=== PATIENT | female | born 1950 | race Caucasian/White ===

== ENCOUNTER 2019-07-22 08:43 | Outpatient (CLI) | payer MEDICARE, SELFPAY ==
--- NOTE | ~2019-07-22 | DEXA_ITS ---
Bone Density Report Name: Susan Moise Age: 69 Sex: Female Ethnicity: White Date of : 1950 Indication: monitoring treatment; prior fracture; cancer; asthma or emphysema; Referring Provider: DARREL, DEJAH Turcios Study: Bone densitometry was performed. Exam Date: July 22, 2019 Accession number: [id number] Bone Density: Region BMD T-score Z-score Classification AP Spine (L1, L2) 0.987 0.1 1.9 Normal Femoral Neck (Left) 0.769 -0.7 0.9 Normal Total Hip (Left) 1.007 0.5 1.9 Normal Total Hip Bilateral Avg 1.006 0.5 1.9 Normal Femoral Neck (Right) 0.768 -0.7 0.9 Normal Total Hip (Right) 1.004 0.5 1.9 Normal World Health Organization criteria for BMD impression classify patients as: Normal (T-score at or above -1.0), Osteopenia (T-score between -1.0 and -2.5), or Osteoporosis (T-score at or below -2.5). 10-year Fracture Risk: FRAX not reported because: All T-scores for Spine Total, Hip Total, Femoral Neck at or above -1.0 Treated for osteoporosis Previous Exams: Region Exam Age BMD T-score BMD Change BMD Change Date g/cm2 vs Baseline vs Previous AP Spine(L1, L2) 07/22/2019 69 0.987 0.1 -0.121(-10.9%) -0.121(-10.9%) 07/19/2017 67 1.108 1.2 Total Hip(Left) 07/22/2019 69 1.007 0.5 0.005(0.5%) 0.005(0.5%) 07/19/2017 67 1.002 0.5 Total Hip(Right) 07/22/2019 69 1.004 0.5 -0.011(-1.1%) -0.011(-1.1%) 07/19/2017 67 1.015 0.6 *Denotes significance at 95% confidence level, LSC for AP Spine = 0.022 g/cm2, LSC for Total Hip = 0.027 g/cm2 Clinical Information Provided by Patient: Has had a low trauma fracture Is being treated for osteoporosis Has used the following medications: Vitamin D, Calcium Has the following medical conditions: Asthma or Emphysema, Cancer Patient maximum height was 65.0 Menopause Age: 52 No regular weight bearing exercise Does not regularly consume dairy products Drinks caffeinated beverages Onset of menses at age 14 Number of children 1 Impression: The patient has normal bone mass. The patient has risk factors, including: previous fracture. The BMD for the AP Spine(L1, L2) decreased, changing by -10.9% since the last DXA exam. Discussion: SIGNIFICANT BONE LOSS OBSERVED. Adherence to therapy (including calcium and vitamin D intake) should be assessed. If compliance is not a factor, review management and exclusion of secondary causes of bone loss. It is important to ask patients whether the
== END 2019-07-22 08:44 | disposition home or self-care (01) ==
LOC: ANHIMG 08:48
PROVIDERS: PCP Internal Medicine; Visit Provider Internal Medicine
DX: C50.211 Malignant neoplasm of upper-inner quadrant of right female breast (principal); Z17.0 Estrogen receptor positive status [ER+]; J43.9 Emphysema, unspecified; Z78.0 Asymptomatic menopausal state
CPT/HCPCS: 77080

== ENCOUNTER 2020-08-15 10:53 | Emergency (ER) | payer MEDICARE, SELFPAY ==
--- NOTE | ~2020-08-15 | XR_ITS ---
XR hand LT min 3V DATE: 08/15/2020 11:25 INDICATION: Fall yesterday. Left ulnar carpal and hand pain TECHNIQUE: 3 views COMPARISON: None FINDINGS: There is diffuse osteopenia. There is osteoarthritis at the first carpometacarpal, fifth metacarpophalangeal and multiple interpha langeal joints. No recent fracture, dislocation, periosteal reaction or bone destruction, chondrocalcinosis or erosiv e change is evident. IMPRESSION: Polyarticular osteoarthritis No fracture or dislocation Reviewed, dictated and finalized at location A. K LOADER
--- NOTE | 2020-08-15 11:07 | ED.UPPEXIN ---
HPI - Extremity Injury (Upper) General Chief Complaint: Extremity Injury, Upper Stated Complaint: fell left hand pain Time Seen by Provider: 08/15/20 11:07 Source: patient and RN notes reviewed Mode of arrival: ambulatory Limitations: no limitations History of Present Illness HPI narrative: 70-year-old female presents to [facility] with left hand pain after tripping and falling yesterday. Patient reports that she tripped and fell landing on her left hand. Denies Hitting head or LOC. Deneis neck or back pain. Pain is to the ulcer aspect of hand. Bruising noted to the top of the hand and to the distal ulner area. Related Data Home Medications Medication Instructions Recorded Confirmed blood sugar diagnostic [Contour 08/15/20 08/15/20 Next Test Strips] bupropion HCl PO 08/15/20 fluticasone propionate [Flovent INHALATION 08/15/20 HFA] metformin mg PO 08/15/20 nifedipine PO 08/15/20 ramipril mg 08/15/20 rosuvastatin mg 08/15/20 venlafaxine mg PO 08/15/20 Allergies Allergy/AdvReac Type Severity Reaction Status Date / Time No Known Allergies Allergy Unverified 07/03/18 16:50 Review of Systems Review of Systems: Narrative: CONSTITUTIONAL: Denies fever, chills, or sweats. EYES: Denies visual changes. CARDIOVASCULAR: Denies chest pain, palpitations, or edema. RESPIRATORY: Denies cough or dyspnea. SKIN: Denies rash or itching. Bruising to the dorsal aspect of left hand MUSCULOSKELETAL: Denies back pain. Left wrist pain and hand pain NEUROLOGIC: Denies headache, numbness, or weakness. PSYCHIATRIC: Denies anxiety or depression. All other systems reviewed are negative, except as documented in HPI. [facility] Past Medical History Medical History (Updated 08/15/20 @ 12:57 by Carrie Christianson) Depression Diabetes 1.5, managed as type 2 History of high cholesterol Hypertension Comments At the time of my signature, I reviewed and agree with the nursing past medical, surgical, social, and family history. There is no relevant family history pertinent to the patient complaint. Exam Narrative: Exam Narrative: GENERAL: This is a well-nourished, well-developed patient, in no apparent distress. HEAD: normocephalic, atraumatic. EYES: PERRL. Sclera clear/white. Vision is grossly intact. EARS: External ears normal. NECK: Neck supple, non-tender without lymphadenopathy, masses or thyromegaly. CARDIOVASCULAR: Regular rate and rhythm without murmurs, gallops, or rubs. RESPIRATORY: Clear to auscultation. Breath sounds equal bilaterally. No wheezes, rales, or rhonchi. SKIN: warm, intact with no suspicious lesions or rash, good texture and turgor. NEURO: awake, alert, and oriented to person, place and time. There were no obvious focal neurologic abnormalities. EXTREMITIES: No clubbing, cyanosis, or edema. No joint tenderness, effusion, or edema noted. No calf tenderness. Negative Homans sign bilaterally. BACK: Nontender without deformity or crepitance. No flank tenderness. Extrem: Hand/finger images: 1. bruising and tenderness with mild swelling 2. Tenderness with bruising. Course Vital Signs Vital signs: Vital Signs Temperature 98.2 F 08/15/20 11:11 Pulse Rate 95 08/15/20 11:11 Respiratory Rate 16 08/15/20 11:11 Blood Pressure 151/74 H 08/15/20 11:11 Pulse Oximetry 99 08/15/20 11:11 Temperature 98.2 F 08/15/20 11:13 Pulse Rate 95 08/15/20 11:13 Respiratory Rate 16 08/15/20 11:13 Blood Pressure 151/74 H 08/15/20 11:13 Pulse Oximetry 99 08/15/20 11:13 reviewed. Patient diagnosed with hypertension. Encourage patient to follow-up with primary care provider for evaluation of the elevated blood pressure today MDM - Extremity Injury (Upper) MDM Narrative Medical decision making narrative: Discharge instructions reviewed with patient, as well as provided in writing per nursing staff. The instructions also include specific and strict return/GO TO THE ER as well as f/u information. A
[2020-08-15 11:11] VITALS: BP 151/74; PULSE 95; RESP 16; TEMP 36.8; O2SAT 99
[2020-08-15 11:13] VITALS: BP 151/74; PULSE 95; RESP 16; TEMP 36.8; O2SAT 99
== END 2020-08-15 12:00 | disposition home or self-care (01) ==
PROVIDERS: Emergency Provider Nurse Practitioner
DX: S60.222A Contusion of left hand, initial encounter (principal); W01.0XXA Fall on same level from slipping, tripping and stumbling without subsequent striking against object, initial encounter; S63.502A Unspecified sprain of left wrist, initial encounter; F32.9 Major depressive disorder, single episode, unspecified; E13.8 Other specified diabetes mellitus with unspecified complications; E78.00 Pure hypercholesterolemia, unspecified; I10 Essential (primary) hypertension
CPT/HCPCS: 73130; 99213; G0463

== ENCOUNTER 2022-05-17 15:54 | Emergency (ER) | payer MEDICARE, SELFPAY ==
--- NOTE | ~2022-05-17 | CT_ITS ---
EXAMINATION: CT cervical spine wo con DATE: 05/17/2022 17:02 INDICATION: Neck pain after fall TECHNIQUE: Computed tomography (CT) of the cervical spine was performed without intravenous contrast. The dose-length product was 498 mGy-cm. Automated exposure control and iterative reconstruction tech nique were employed. COMPARISON: None FINDINGS: There is straightening of cervical lordosis. There is moderate degenerative disc disease at C6-7. Odontoid process is normal. Craniovertebral junction is normal. There is an old avulsion fract ure spinous process T1. There is advanced multilevel uncinate and facet hypertrophy. There is emphyse ma. No paraspinal soft tissue abnormality. IMPRESSION: 1. No acute abnormality of the cervical spine. 2: Severe cervical spondylosis. Reviewed, dictated and finalized at location A. S AND SERVICE AGENT
--- NOTE | ~2022-05-17 | CT_ITS ---
EXAMINATION: CT brain wo con DATE: 05/17/2022 17:00 INDICATION: Status post fall. TECHNIQUE: Computed tomography (CT) of the head was performed without intravenous contrast. The dose- length product was 605.33 mGy-cm. Automated exposure control and iterative reconstruction technique w ere employed. COMPARISON: None FINDINGS: Mild generalized atrophy. There are scattered mild periventricular and subcortical white ma tter changes, most likely related to small vessel ischemic disease (microangiopathy). No ventriculome mitch or midline shift. No acute intracranial hemorrhage, infarction, mass or mass effect. Prominent d ural calcifications along the anterior aspect of the interhemispheric fissure. There is soft tissue l aceration anteriorly above the nose and then the forehead there are nasal fractures.. IMPRESSION: 1. No acute intracranial abnormality. 2: Bilateral nasal fractures. Reviewed, dictated and finalized at location A. D CONTRACTOR
[2022-05-17 16:10] VITALS: BP 142/90; PULSE 107; RESP 18; TEMP 36.3; O2SAT 100
--- NOTE | 2022-05-17 19:08 | ED.FALL ---
HPI - Fall General Chief Complaint: Fall Stated Complaint: fall Time Seen by Provider: 05/17/22 18:29 History of Present Illness HPI Narrative: 72-year-old female presents to the emergency room for evaluation of a head injury status post mechanical ground-level fall. Patient states that she lost her footing and fell forward hitting her face on the concrete. Complains of nasal pain a laceration to her forehead. Denies any LOC or altered mental status. No visual or hearing changes. Was able to ambulate following the injury. Denies confusion or headache. Related Data Home Medications Medication Instructions Recorded Confirmed blood sugar diagnostic (Contour 08/15/20 08/15/20 Next Test Strips) bupropion HCl 100 mg tablet PO 08/15/20 fluticasone propionate 110 inhalation 08/15/20 mcg/actuation HFA aerosol inhaler (Flovent HFA) metformin 500 mg tablet,extended mg PO 08/15/20 release 24 hr nifedipine 60 mg tablet,extended PO 08/15/20 release 24 hr ramipril 10 mg capsule mg 08/15/20 rosuvastatin 10 mg tablet mg 08/15/20 venlafaxine 150 mg mg PO 08/15/20 capsule,extended release 24 hr Allergies Allergy/AdvReac Type Severity Reaction Status Date / Time No Known Allergies Allergy Unverified 07/03/18 16:50 Review of Systems Review of Systems: CONSTITUTIONAL: Denies fever, chills, or sweats. EYES: Denies visual changes, redness, or discharge. ENT: Nasal pain CARDIOVASCULAR: Denies chest pain, palpitations, or edema. RESPIRATORY: Denies cough or dyspnea. GASTROINTESTINAL: Denies abdominal pain, nausea, vomiting, or diarrhea. GENITOURINARY: Denies dysuria or hematuria. SKIN: Forehead laceration MUSCULOSKELETAL: Denies back pain, joint pain, or myalgia. NEUROLOGIC: Denies headache, numbness, dizziness, or weakness. PSYCHIATRIC: Denies anxiety or depression. [facility] Past Medical History Medical History Depression Diabetes 1.5, managed as type 2 History of high cholesterol Hypertension Exam Narrative: GENERAL: Well-appearing, well-nourished, no physical limitations, and in no acute distress. HEAD: Normocephalic, +TTP, +STS, ecchymosis to bridge of nose EYES: Conjunctivae normal, PERRLA and EOMI. ENT: External nose normal, Nares clear, epistaxis present. CHEST: Clear to auscultation. No respiratory distress. No wheezes rales or rhonchi. HEART: Regular rate and rhythm. No murmur heard. Normal peripheral pulses. EXTREMITIES: Normal range of motion. No edema. No clubbing or cyanosis SKIN: forehead: Stellate shaped laceration superior to the bridge of the nose. NEURO: No focal deficits. Alert and oriented x3. MAEW. CN's II-XI intact bilaterally, normal gait PSYCH: Cooperative. Normal mood and affect. Course Vital Signs Vital signs: Vital Signs Temperature 36.3 C L 05/17/22 16:10 Pulse Rate 107 H 05/17/22 16:10 Respiratory Rate 18 05/17/22 16:10 Blood Pressure 142/90 H 05/17/22 16:10 Pulse Oximetry 100 05/17/22 16:10 Temperature 36.3 C L 05/17/22 16:10 Pulse Rate 107 H 05/17/22 16:10 Respiratory Rate 18 05/17/22 16:10 Blood Pressure 142/90 H 05/17/22 16:10 Pulse Oximetry 100 05/17/22 16:10 Procedures Laceration Laceration 1: Time: 20:29 Site: face Size (cm): 4 Description: stellate Depth: simple, single layer Local Anesthetic: lidocaine 1% and with epi Amount of anesthesia used (mL): 10 Pre-repair: irrigated ====== Skin Level ====== Skin layer closed with: nylon Size (cm): 6-0 Number of sutures: 8 Technique: simple, interrupted ====== Subcutaneous Layer ====== ====== Muscle Layer ====== ====== Tendon Layer ====== MDM - Fall Imaging Data Radiologist's impression: Impressions Head CT 05/17/22 17:01 IMPRESSION: 1. No acute intracranial abnormality. 2: Bilateral nasal fractures.
[2022-05-17] MEDS: LIDO 1%/EPINEPHRINE/PF 1:200,000 30 ML VIAL 20 ML INFILTRATE (20:14)
[2022-05-17] MEDS: HYDROcodone/acetaminophen (*CRX) 5-325 MG TABLET 1 TAB PO (20:44)
[2022-05-17 20:54] VITALS: BP 141/76; PULSE 97; RESP 16; O2SAT 100
== END 2022-05-17 20:55 | disposition home or self-care (01) ==
PROVIDERS: Emergency Provider Nurse Practitioner Family; PCP Family Medicine
DX: E13.8 Other specified diabetes mellitus with unspecified complications (principal); S01.81XA Laceration without foreign body of other part of head, initial encounter; E78.00 Pure hypercholesterolemia, unspecified; I10 Essential (primary) hypertension; Z79.84 Long term (current) use of oral hypoglycemic drugs; M47.812 Spondylosis without myelopathy or radiculopathy, cervical region; W01.0XXA Fall on same level from slipping, tripping and stumbling without subsequent striking against object, initial encounter
CPT/HCPCS: 12013; 70450; 72125; 99284; A9270